=== PATIENT | female | born 1990 | race Caucasian/White ===

== ENCOUNTER 2023-03-26 14:39 | Outpatient (CLI) | payer OTHER, SELFPAY ==
--- NOTE | ~2023-03-26 | US_ITS ---
EXAMINATION: US OB transvaginal DATE: 03/26/2023 15:12 INDICATION: First trimester dating TECHNIQUE: Real-time pelvic transabdominal and transvaginal ultrasound was performed. COMPARISON: None. FINDINGS: The uterus measures 9.4 x 4.8 x 6.1 cm. There is an intrauterine gestational sac. A yolk sa c is identified. heart motion is identified measuring 137 beats per minute (bpm) by M-mode Dopp ler. The crown rump length measures 10 mm, which correlates with an estimated gestational age o f 7 weeks and 0 day(s) (+/-) 4 day(s). The right ovary measures 2.5 x 1.6 x 2.4 cm. The left ovary measures 3.3 x 2.9 x 3.8 cm. There is nor mal vascular flow in the ovaries. There is no free fluid in the pelvis. IMPRESSION: 1. Live intrauterine with an estimated gestational age of 7 weeks and 0 day(s) (+/-) 4 day( s) and an estimated delivery date of 11/12/2023. Reviewed, dictated and finalized at location F. IMPRESSION: 1. Live intrauterine with an estimated gestational age of 7 weeks and 0 day(s) (+/-) 4 day(s) and an estimated delivery date of 11/12/2023.
== END 2023-03-26 14:40 ==
PROVIDERS: PCP Obstetrics & Gynecology Gynecology; Visit Provider Obstetrics & Gynecology Gynecology
DX: O09.811 Supervision of pregnancy resulting from assisted reproductive technology, first trimester (principal); Z3A.01 Less than 8 weeks gestation of pregnancy; Z79.811 Long term (current) use of aromatase inhibitors
CPT/HCPCS: 76817

== ENCOUNTER 2023-06-08 11:12 | Outpatient (CLI) | payer OTHER, SELFPAY ==
--- NOTE | ~2023-06-08 | US_ITS ---
EXAMINATION: US OB /maternal detail DATE: 06/08/2023 12:17 INDICATION: survey TECHNIQUE: Multiple obstetric sonographic images performed. FINDINGS: No prior studies for comparison. There is a single living fetus in variable presentation. The placenta is anterior without placenta p revia. Cervical length is 3.6 cm. Placental margin to the cervix is 4.8 cm. Amniotic fluid volume is injected with normal. cardiac activity and movement is noted with a heart rate of 163 beats per minute. The following anatomy was identified as normal: 4 chamber heart 3 vessel cord cord insertion kidneys urinary bladder stomach spine diaphragm ventricles cisterna magna cerebellum The following biometric data were obtained: BPD: 42mm corresponds to gestational age 18 weeks 5 days. Head circumference: 159 mm corresponds to gestational age 18 weeks 5 days. Abdominal circumference: 128 mm corresponds to gestational age 18 weeks 2 days. Femur length: 26 mm corresponds to gestational age 17 weeks 6 days. Head circumference to abdominal circumference ratio: 1.25 (normal range for expected gestational age is 1.08-1.27). Estimated weight: 229 grams +/- 34 grams using Hadlock method, 83.5%. IMPRESSION: 1: Single living intrauterine with an estimated gestational age of 18weeks 3days by current ultrasound measurements, with an EDC of 11/06/2023 in variable presentation. 2. Normal survey. Reviewed, dictated and finalized at location A. [employer] IMPRESSION: 1: Single living intrauterine with an estimated gestational age of 18 weeks 3days by current ultrasound measurements, with an EDC of 11/06/2023 in carmita iable presentation. 2. Normal survey.
== END 2023-06-08 11:13 ==
LOC: MICIMG 11:13
PROVIDERS: PCP Advanced Practice Midwife; Visit Provider Advanced Practice Midwife
DX: Z36.9 Encounter for antenatal screening, unspecified (principal); Z3A.18 18 weeks gestation of pregnancy
CPT/HCPCS: 76805

== ENCOUNTER 2023-09-14 09:48 | Outpatient (CLI) | payer BC, SELFPAY ==
--- NOTE | ~2023-09-14 | US_ITS ---
US OB follow up DATE: 09/14/2023 10:19 INDICATION: Size greater than dates TECHNIQUE: Real-time imaging and Doppler analysis COMPARISON: 06/08/2020 obstetrical ultrasound FINDINGS: Live jackson intrauterine gestation, fetus in longitudinal lie, vertex presentation. Feta l heart rate of 139 bpm. Anterior placenta. Amniotic fluid index measures 23.2 cm per 5th percentile is 8.8 cm; 95th percentile is 23.8 cm. BPD 8.38 cm; 33 weeks 5 days Head circumference 30.93 cm; 34 weeks 4 days Abdominal circumference 29.11 cm; 33 weeks 1 day Femur length 6.24 cm; 32 weeks 2 days Composite age by Hadlock formula is 33 weeks 3 days plus or minus 2 weeks 2 days. MICHAEL 10/30/2023 Estimated weight is 2115 g plus or minus 317.31 grams EFW-GP 85.4% FL/BPD 74.49 (normal range 71.0-87.9) HC/AC 1.06 (normal range 0.95-1.11) FL/AC 21.45 (normal range 20.00-24.00) FL/HC 20.19 (normal range 19.69-21.63) IMPRESSION: Amniotic fluid index measures 23.2 cm, at upper limits of normal (95th percentile) Reviewed, dictated and finalized at Location A. Reviewed, dictated and finalized at location A. IMPRESSION: Amniotic fluid index measures 23.2 cm, at upper limits of normal (9 5th percentile)
== END 2023-09-14 09:49 ==
PROVIDERS: PCP Advanced Practice Midwife; Visit Provider Advanced Practice Midwife
DX: O36.63X0 Maternal care for excessive fetal growth, third trimester, not applicable or unspecified (principal)
CPT/HCPCS: 76816

== ENCOUNTER 2023-10-12 09:13 | Outpatient (CLI) | payer BC, SELFPAY ==
--- NOTE | ~2023-10-12 | US_ITS ---
EXAMINATION: US OB follow up DATE: 10/12/2023 09:49 INDICATION: Size greater than dates. TECHNIQUE: Real-time ultrasound of the pelvis was performed. COMPARISON: Ultrasound 09/14/2023, 03/26/2023. FINDINGS: There is a single living fetus in vertex presentation. The placenta is anterior. heart rate is 129 beats per minute (bpm). The amniotic fluid index is 14.7 cm, which is normal. The following biometric data were obtained: Biparietal diameter (BPD): 9.4 cm; head circumference (HC): 33.4 cm; abdominal circumference (AC): 34 .5 cm; femur length (FL): 7.3 cm. These measurements are concordant. Estimated weight is 3385 g +/- 508 g, which correlates with the >97th percentile when 11/12/23 i s used as estimated date of delivery. As single measurements, these parameters are each equal to the following estimated gestational ages: BPD: 38 weeks 1 days. HC: 38 weeks 1 days. AC: 38 weeks 3 days. FL: 37 weeks 2 days. estimated gestational age based solely on measurements from this exam is 38 weeks 0 days +/- 2 weeks 5 days. IMPRESSION: 1. Single living fetus in vertex presentation. 2. Large for gestational age. Estimated weight is 3385 g +/- 508 g, which correlates with the >97th percentile when 11/12/23 is used as estimated date of delivery. This date was set by ultrasound on 03/26/2023. Reviewed, dictated and finalized at location E. IMPRESSION: 1. Single living fetus in vertex presentation. 2. Large for gestational age. Estimated weight is 3385 g +/- 508 g, whic h correlates with the >97th percentile when 11/12/23 is used as estimated date o f delivery. This date was set by ultrasound on 03/26/2023.
== END 2023-10-12 09:14 ==
PROVIDERS: PCP Advanced Practice Midwife; Visit Provider Nurse Practitioner
DX: O36.63X0 Maternal care for excessive fetal growth, third trimester, not applicable or unspecified (principal); Z3A.00 Weeks of gestation of pregnancy not specified
CPT/HCPCS: 76816

== ENCOUNTER 2023-10-18 09:57 | Outpatient (CLI) | payer BC, SELFPAY ==
[2023-10-18] VITALS (9 sets, daily range): BP systolic 118–129; BP diastolic 68–78; PULSE 72–79; BMI 37.3
[2023-10-18 10:48] LABS: Basophils Percent Auto 0.3 % (0.2-1.2); Eosinophils Percent Auto 0.3 % (0-4.4); Hematocrit 36.2 % (37.0-47.0); Hemoglobin 11.6 g/dL (12.0-15.0); Immature Granulocyte Absolute 0.25 K/mm3 (0.00-0.031); Immature Granulocyte Percent A 2.3 % (0-0.5); Lymphocytes Absolute Auto 1.26 K/mm3 (0.9-3.2); Lymphocytes Percent Auto 11.7 % (18.3-44.2); Mean Corpuscular Hemoglobin 29.3 pg (26-34); Mean Corpuscular Volume 91.4 fl (80-100); Mean Platelet Volume 10.9 fl (7.4-10.4); Monocytes Absolute Auto 0.5 K/mm3 (0.1-0.6); Monocytes Percent Auto 4.9 % (2.6-8.5); Neutrophils Absolute Auto 8.7 K/mm3 (1.3-6.7); Neutrophils Percent Auto 80.5 % (45.5-73.1); Platelet Count Result 230 k/mm3 (150-375); Red Blood Count 3.96 M/mm3 (4.2-5.4); Red Cell Distribution Width 14.2 % (11.5-14.5); White Blood Count 10.8 K/mm3 (4.5-10.0)
[2023-10-18 10:58] LABS: Alanine Aminotransferase 15 U/L (6-35); Albumin Level 3.5 g/dL (3.5-5.1); Alkaline Phosphatase 156 U/L (38-126); Anion Gap 4 mmol/L (4-12); Aspartate Amino Transferase 20 U/L (14-36); Bilirubin,Total 0.4 mg/dL (0.2-1.3); Blood Urea Nitrogen 5 mg/dL (7-17); Calcium 8.8 mg/dL (8.4-10.2); Carbon Dioxide 22 mmol/L (22-30); Chloride 108 mmol/L (98-107); Estimated Glomerular Filt Rate > 60; Glucose 79 mg/dL (65-110); Potassium 3.8 mmol/L (3.4-5.0); Sodium 134 mmol/L (137-145); Uric Acid 4.3 mg/dL (2.5-7.5)
[2023-10-18 11:19] LABS: Appearance Urine Clear (Clear); Bilirubin Urine Negative (Negative); Blood Urine Negative (Negative); Color Urine Yellow (Yellow); Glucose Urine UA Negative (Negative); Ketones Urine 1+ mg/dL (Negative); Leukocyte Esterase Ur Negative LEU/UL (Negative); Nitrate Urine Negative (Negative); Protein Urine Negative (Negative); Specific Grav Ur 1.006 (1.001-1.035); Urobilinogen Urine 0.2 mg/dL (<2.0); pH Urine 7.5 (5.0-9.0)
[2023-10-18 11:25] LABS: Add Urine Microscopic? YES; Creatinine Urine 39.6 mg/dL; Total Protein Urine Random 16 mg/dL
--- NOTE | 2023-10-18 11:48 | PC.NURSE ---
Dr. Verdin returned page and informed of reactive NST, BP's, and lab results. OK to discharge to home. Pt to do 24 hr urine at home since PCR was elevated.
== END 2023-10-18 12:00 | disposition home or self-care (01) ==
LOC: ANHOBOP 10:00 → ANHOBPP 10:02
PROVIDERS: PCP Advanced Practice Midwife; Visit Provider Obstetrics & Gynecology Gynecology
DX: O13.9 Gestational [pregnancy-induced] hypertension without significant proteinuria, unspecified trimester (principal); Z3A.00 Weeks of gestation of pregnancy not specified
CPT/HCPCS: 36415; 59025; 80053; 81001; 82570; 84156; 84550; 85025; 99199

== ENCOUNTER 2023-10-19 12:58 | Outpatient (CLI) | payer BC, SELFPAY ==
[2023-10-19 13:06] VITALS: BMI 37.3
[2023-10-19 13:48] LABS: Total Volume 24 Hour Urine 2150 ml
[2023-10-19 13:48] LABS: Collection Time Urine 24 HOURS
[2023-10-19 13:49] LABS: Total Volume 24 Hour Urine 2150 ml
[2023-10-19 13:55] LABS: Creatinine Clearance Urine 189.1 ml/min (75-125); Creatinine Urine 81.3 mg/dL; Patient Weight 245 Lbs
[2023-10-19 13:55] LABS: Total Protein Urine 24 Hr 430 mg/24hr (28-141); Total Protein Urine Random 20 mg/dL
== END 2023-10-19 12:59 | disposition home or self-care (01) ==
LOC: ANHOBOP 13:01
PROVIDERS: PCP Advanced Practice Midwife; Visit Provider Obstetrics & Gynecology Gynecology
DX: Z34.90 Encounter for supervision of normal pregnancy, unspecified, unspecified trimester (principal); Z3A.00 Weeks of gestation of pregnancy not specified
CPT/HCPCS: 81050; 82575; 84156

== ENCOUNTER 2023-10-21 19:49 | Inpatient (IN) | payer BC, SELFPAY ==
[2023-10-21 20:06] VITALS: BMI 36.8
--- NOTE | 2023-10-21 20:06 | LDADM ---
This patient, Papi Jeong, was admitted to Labor/Delivery/Recovery 104 on 10/21/23 at 19:49. Plans for labor, pain management and were discussed with patient. Patient/family oriented to hospital policies and general routines including ID bracelet, bed and alarms, visiting hours, pain management, procedures, bathroom and other care routines, personal items, smoking policy, room service/diet and guest tray routines, security routines, and visiting hours. Patient/Family are encouraged to report perceived risks to care and to ask questions if they do not understand what they are told or what they should do. See OBIX for further documentation.
[2023-10-21 20:46] VITALS: BP 119/76; PULSE 80
[2023-10-21 20:47] LABS: Glucose Point of Care 109 mg/dl (65-105)
[2023-10-21 20:53] LABS: Basophils Percent Auto 0.2 % (0.2-1.2); Eosinophils Percent Auto 0.2 % (0-4.4); Hemoglobin 10.8 g/dL (12.0-15.0); Immature Granulocyte Absolute 0.13 K/mm3 (0.00-0.031); Immature Granulocyte Percent A 0.9 % (0-0.5); Lymphocytes Absolute Auto 1.74 K/mm3 (0.9-3.2); Lymphocytes Percent Auto 12.1 % (18.3-44.2); Mean Corpuscular HGB Conc 32.7 g/dl (32-36); Mean Corpuscular Hemoglobin 29.3 pg (26-34); Mean Corpuscular Volume 89.7 fl (80-100); Mean Platelet Volume 10.9 fl (7.4-10.4); Monocytes Absolute Auto 0.7 K/mm3 (0.1-0.6); Monocytes Percent Auto 4.8 % (2.6-8.5); Neutrophils Absolute Auto 11.8 K/mm3 (1.3-6.7); Neutrophils Percent Auto 81.8 % (45.5-73.1); Platelet Count Result 230 k/mm3 (150-375); Red Blood Count 3.68 M/mm3 (4.2-5.4); Red Cell Distribution Width 14.5 % (11.5-14.5); White Blood Count 14.4 K/mm3 (4.5-10.0)
[2023-10-21 21:00] VITALS: BP 129/82; PULSE 80; TEMP 36.4
[2023-10-21 21:04] LABS: Alanine Aminotransferase 17 U/L (6-35); Albumin Level 3.5 g/dL (3.5-5.1); Alkaline Phosphatase 150 U/L (38-126); Anion Gap 5 mmol/L (4-12); Aspartate Amino Transferase 27 U/L (14-36); Bilirubin,Total 0.4 mg/dL (0.2-1.3); Blood Urea Nitrogen 7 mg/dL (7-17); Calcium 8.9 mg/dL (8.4-10.2); Carbon Dioxide 19 mmol/L (22-30); Chloride 109 mmol/L (98-107); Estimated CRCL calculation 177 ml/min; Estimated Glomerular Filt Rate > 60; Glucose 108 mg/dL (65-110); Potassium 3.5 mmol/L (3.4-5.0); Sodium 133 mmol/L (137-145)
[2023-10-21 21:05] LABS: Uric Acid 4.3 mg/dL (2.5-7.5)
[2023-10-21] MEDS: miSOPROStol 25 MCG TABLET VAGINAL (21:05)
[2023-10-21 21:31] VITALS: BP 129/70; PULSE 79
[2023-10-21 22:31] VITALS: BP 115/56; PULSE 74
[2023-10-21 23:01] VITALS: BP 111/44; PULSE 73
[2023-10-21 23:30] VITALS: BP 118/59; PULSE 72
[2023-10-22] VITALS (185 sets, daily range): BP systolic 90–159; BP diastolic 35–107; PULSE 66–161; TEMP 36.1–36.6; O2SAT 92–100
[2023-10-22] MEDS: miSOPROStol 25 MCG TABLET 50 MCG VAGINAL ×2 (01:09→05:27)
--- NOTE | 2023-10-22 07:41 | WPDOBADMIT ---
Obstetrics - Admit Note Admission Note: record reviewed. No pertinent additions to the history and/or any subsequent changes in the physical findings that are not consistent with the expected course of the were found. Additions to the history and/or subsequent changes in the physical findings follow. Preeclampsia
--- NOTE | 2023-10-22 07:41 | PM.OBPNLAB ---
Pain Control Date/time seen: 10/22/23 07:30 Pain control: tolerating well Comments: Feeling very occasional cramping. Denies HOUSE, visual changes, RUQ pain, edema. Pelvic Exam Dilation (cm): 1 (1.5) Effacement (%): 60 station: -1 Amniotic membrane status: Intact Comments: head very well applied to cervix. Contractions Monitor mode: External Contraction frequency: 3 (2-4) Contraction duration: 60 (60-80) Contraction pattern: Regular Contraction phase: Contraction Contraction intensity: Moderate Status status: Category l Assessment and Plan Assessment: induction ongoing Comments: CNM to bedside. Reflexes 2+. Discussed plan of care an option for amniotomy. Discussed risks, benefits, and expectations of breaking water. Patient is agreeable. Amniotomy performed and there was a small return of clear amniotic fluid. Patient tolerated procedure well. Plan to begin pitocin if no cervical change by 0930.
[2023-10-22] MEDS: OXYTOCIN 30 UNITS/NS 500 ML 30 UNITS/500 ML BAG IV CONT (09:34)
[2023-10-22] MEDS: LACTATED RINGERS 1,000 ML 125 ML IV CONT ×3 (09:35→18:58)
--- NOTE | 2023-10-22 14:28 | WPDANESEPP ---
Anes - Eval Pre Procedure Procedure: Labor epidural Date/Time: 10/22/23 14:28 Surgeon: Lambert Preop Diagnosis: Pain during labor Pre Op Diagnosis: IOL Patient Data Age: 32 Gender: F Height: 1.73 m Weight: 110 kg Last Vital Signs Temp 36.1 C L 10/22/23 12:00 Pulse 77 10/22/23 14:01 BP 159/90 H 10/22/23 14:01 Pulse Ox 94 10/22/23 14:27 O2 Del Method Room Air 10/21/23 20:06 Allergies Allergy/AdvReac Type Severity Reaction Status Date / Time No Known Allergies Allergy Verified 10/14/23 14:34 Home Medications Medication Instructions Recorded Confirmed Type aspirin 81 mg capsule 81 mg PO DAILY 10/14/23 10/18/23 History cholecalciferol (vitamin D3) 125 125 mcg PO BID 10/14/23 10/18/23 History mcg (5,000 unit) tablet (Vitamin D3) ferrous sulfate 325 mg (65 mg 325 mg PO DAILY 10/14/23 10/18/23 History iron) tablet levothyroxine 88 mcg tablet 88 mcg PO DAILY 10/14/23 10/18/23 History metformin 500 mg tablet 1,000 mg PO HS 10/14/23 10/18/23 History omeprazole 20 mg tablet,delayed 20 mg PO DAILY 10/14/23 10/18/23 History release vits no.126-ferrous fum 1 tablet PO DAILY 10/14/23 10/18/23 History 28 mg iron-folic acid 800 mcg tablet (Classic ) doxylamine succinate 25 mg tablet 12.5 mg PO HS PRN Nausea 10/18/23 10/18/23 History (Unisom (doxylamine)) Laboratory Tests 10/21/23 10/21/23 20:33 20:38 WBC 14.4 H K/mm3 (4.5-10.0) RBC 3.68 L M/mm3 (4.2-5.4) Hgb 10.8 L g/dL (12.0-15.0) Hct 33.0 L % (37.0-47.0) MCV 89.7 fl (80-100) MCH 29.3 pg (26-34) MCHC 32.7 g/dl (32-36) RDW 14.5 % (11.5-14.5) Plt Count 230 k/mm3 (150-375) MPV 10.9 H fl (7.4-10.4) Immature Gran % (Auto) 0.9 H % (0-0.5) Neut % (Auto) 81.8 H % (45.5-73.1) Lymph % (Auto) 12.1 L % (18.3-44.2) [place] % (Auto) 4.8 % (2.6-8.5) Eos % (Auto) 0.2 % (0-4.4) Baso % (Auto) 0.2 % (0.2-1.2) Lymph # (Auto) 1.74 K/mm3 (0.9-3.2) [place] # (Auto) 0.7 H K/mm3 (0.1-0.6) Eos # (Auto) 0.0 K/mm3 (0-0.3) Baso # (Auto) 0.0 K/mm3 (0.0-0.1) Abs Immat Gran (auto) 0.13 H K/mm3 (0.00-0.031) Absolute Neuts (auto) 11.8 H K/mm3 (1.3-6.7) Absolute Nucleated RBC 0.000 K/mm3 (0.0-0.012) Nucleated RBC % 0.0 % (0.0-0.2) Sodium 133 L mmol/L (137-145) Potassium 3.5 mmol/L (3.4-5.0) Chloride 109 H mmol/L (98-107) Carbon Dioxide 19 L mmol/L (22-30) Anion Gap 5 mmol/L (4-12) BUN 7 mg/dL (7-17) Creatinine 0.50 L mg/dL (0.7-1.0) Estim Creat Clear Calc 177 ml/min Estimated GFR > 60 (59 - ) Glucose 108 mg/dL (65-110) POC Capillary Glucose 109 H mg/dl (65-105) Uric Acid 4.3 mg/dL (2.5-7.5) Calcium 8.9 mg/dL (8.4-10.2) Total Bilirubin 0.4 mg/dL (0.2-1.3) AST 27 U/L (14-36) ALT 17 U/L (6-35) Alkaline Phosphatase 150 H U/L (38-126) Total Protein 7.0 g/dL (6.3-8.2) Albumin 3.5 g/dL (3.5-5.1) RPR Pending Blood Type O Positive Antibody Screen Negative Patient hx anesthesia problems: none Family hx anesthesia problems: none Results Review: All pre-operative results and documents have been reviewed as part of the pre-operative evaluation. [facility] Family History Family History Mother Cerebrovascular accident Grandparent Congestive heart failure Social History Social History Smoking status: Never smoker Substance use: never Do You Feel Safe in your Home?: Yes Lack of Transportation: No Lack of Food: Never True Current Housing: I Have Housing Concerned About Future Housing: No Difficulty Paying Gas
[2023-10-22] MEDS: ONDANSETRON INJ 4 MG/2 ML VIAL IV PUSH (21:52)
[2023-10-23] VITALS (64 sets, daily range): BP systolic 108–164; BP diastolic 57–85; PULSE 67–123; RESP 16–18; TEMP 36.4–37; O2SAT 84–100
[2023-10-23] MEDS: OXYTOCIN 30 UNITS/NS 500 ML 30 UNITS/500 ML BAG 999 UNITS IV CONT (02:00)
--- NOTE | 2023-10-23 02:10 | PM.OBPRVD ---
OB - Vaginal Delivery Note Procedure Delivery date: 10/23/23 Events: Preeclampsia w/o severe features Induction method: AROM, Per Misoprostol Protocol and Per Pitocin Protocol Delivery monitor: External FHT and Internal Uterine Route of delivery: Laceration Description: Perineal - 2nd Degree Delivery repair: vicryl (3-0) Specimen: Yes (placenta) Quantitative Blood Loss (ml): 300 Anesthesia type: Epidural Disposition: Floor Complications: No immediate complications Baby Date of : 10/23/23 Weeks of gestation at delivery: 37 (37 4/7) gender: Female presentation: vertex position: Right Occiput Anterior Placenta delivery description: Spontaneous Cord Vessel Description: 3 Vessels and Delayed Cord Clamping score one minute: 8 score five minutes: 9
--- NOTE | 2023-10-23 02:12 | PM.OBDSVD ---
DS: Admitting Diagnosis Discharge Date 10/25/23 Admitting Diagnosis IUP 37 2/7 wks for MIL secondary to Preeclampsia DS: Discharge Diagnosis Discharge Diagnosis (1) Preeclampsia: Code(s): O14.90 - Unspecified pre-eclampsia, unspecified trimester Status: Acute (2) (normal spontaneous vaginal delivery): Code(s): O80 - Encounter for full-term uncomplicated delivery Status: Acute OB - DS: Summary OB Procedures : PIH Mgmt and Ultrasound OB Procedures Intrapartum: Spontaneous Vag Delivery OB Procedures: : None Peripartum Data Infant Delivery Method: Natural Vaginal Laceration Description: Perineal - 2nd Degree complications: none Status at Discharge Functional status at discharge: independent ambulation Overall status at discharge: patient is progressing back to baseline Time Spent with Patient Time attestation: Total time spent providing and/or coordinating discharge services: Discharge Plan Discharge Attending physician on discharge: Cassandra Verdin Discharging Clinician: Cassandra Verdin Anticipated Discharge Date/Time: 10/25/23 02:13 Patient Disposition: Home, Self-Care Activity: may shower and pelvic rest Diet: regular Patient Instructions: Antibiotic Form Stand Alone Forms: General Discharge Information Follow-up/Referrals: Cassandra Verdin MD [Physician] - 1 Week (and 6 wks) Discharge Medications: Continued metformin 500 mg Tablet 1,000 mg PO HS levothyroxine 88 mcg Tablet 88 mcg PO DAILY cholecalciferol (vitamin D3) [Vitamin D3] 125 mcg (5,000 unit) Tablet 125 mcg PO BID Rx Instructions: Takes 5000 units one day and 10,000 units the next Classic 28 mg iron- 800 mcg Tablet 1 tablet PO DAILY Discontinued ferrous sulfate 325 mg (65 mg iron) Tablet 325 mg PO DAILY omeprazole 20 mg Tablet,Delayed Release (Dr/Ec) 20 mg PO DAILY aspirin 81 mg Capsule 81 mg PO DAILY Unisom (doxylamine) 25 mg Tablet 12.5 mg PO HS PRN (Reason: Nausea) Date of admission: 10/21/23 19:49 Primary Care Provider: Lisa Stout Admitting Provider: Cassandra Verdin Attending physician on admission: Cassandra Verdin Condition: Stable
[2023-10-23] MEDS: OXYTOCIN 30 UNITS/NS 500 ML 30 UNITS/500 ML BAG 125 UNITS IV CONT (02:22)
[2023-10-23] MEDS: BENZOCAINE 20% AER SPR (*SP) 56 GM CAN 1 SPRAY TOPICAL (02:26)
[2023-10-23] MEDS: WITCH HAZEL 40 PADS 1 PAD TOPICAL (02:26)
--- NOTE | 2023-10-23 04:42 | OBPPTRN ---
Patient transferred to post room #277 via w/c. Support person present. Oriented to unit, room, information board, rooming in, admission packet and security measures. Patient verbalizes understanding.
[2023-10-23] MEDS: IBUPROFEN 600 MG TABLET PO ×3 (05:20→21:50)
--- NOTE | 2023-10-23 07:50 | PM.OBPNLAB ---
Pain Control Date/time seen: 10/22/231904 Late entry. CNM called for update and spoke with RN. Pt s/p epidural and 4cm. FHT tracing reassuring. Care of pt to Dr. Verdin at this time.
[2023-10-23] MEDS: MULTIVIT/MIN/PREN/FOL AC/IRON TABLET 1 TAB PO (07:56)
[2023-10-23] MEDS: LEVOTHYROXINE SODIUM 88 MCG TABLET PO (07:56)
[2023-10-23] MEDS: DOCUSATE SODIUM 100 MG CAPSULE PO ×2 (07:56→17:19)
[2023-10-23] MEDS: POLYSACCHARIDE IRON COMPLEX 150 MG CAPSULE PO ×2 (07:56→17:19)
[2023-10-23] MEDS: CHOLECALCIFEROL 1,000 UNITS TABLET 5000 UNITS PO ×2 (07:57→17:19)
[2023-10-23 12:30] LABS: Rapid Plasma Reagin Non-Reactive (NonReactive)
--- NOTE | 2023-10-23 17:09 | PC.NURSE ---
Addendum entered by Desire Waters RN 10/23/23 17:26: Infant is spitty and gaggy. The formula feeding at 1250 was spit up. Original Note: [id number] Introductions were made, then consulted with patient to assess needs related to . Discussed with mother her?plans to feed?her , the?experience so far, late behaviors, using [id number] and stimulating with undressing, checking the diaper to encourage . Mother shared that is in the nursery to have a hearing test done. Resources provided for inpatient and outpatient services with the feeding sheet, mom/baby guide and name written on the communication board. Mother voiced understanding of information and parents encouraged to call for assistance when infant returns to them. [phone] Mother requested KELLY HAMILTON to consult with her. Infant has been [id number]-[id number] and showing feeding cues rarely. Primary RN is at the bedside feeding the formula and prepared to give gel for a low blood sugar. Breast pump provided due to ineffective and introduction to the nipple shield last night. Instructions given on cleaning, care, usage, that there should be no pain, pumping schedule for milk production, collection, and storage of human milk. Patient was assessed for correct placement, flange size (24mm used, mother denied pain, however; there was blanching after the pumping session, Mother was encouraged to pump for comfort, nipple stretching/stimulation for adequate milk production every 3 hours (8 times in 24 hours) 1-2 times at night with the 27mm flange next time to assess for comfort. Parents are encouraged to record the pumping schedule on the feeding sheet.?Mother voiced understanding of the education shared along with mom/baby guide and the pump measurement, flange fit handout for additional resource information. [id number] KELLY HAMILTON responded to a request for assistance with this feeding. Mother led the conversation with her?plans to feed?her infant and the?experience so far. Encouraged understanding of the benefits of skin to skin (demonstrating unwrapping infant and placing upright on her chest), stimulating with massage touch, changing positions to encourage wakefulness, how to watch for early feeding cues, responsive feeding, feeding on demand (aiming for 8-12 times in 24 hours, about every 2-3 hours), milk production, building/maintaining a milk supply, duration of feeding, signs of adequate intake/output and how to record on the feeding sheet. Mother works well with her infant with encouragement and education. The late rarely demonstrated feeding cues and ways to encourage with hand expressed colostrum. We respond to the feeding cues we visualize and attempt to latch with and without the nipple shield. Infant will latch with the nipple shield, then when it is removed rarely will latch optimally. EBM is visible on the inside of the nipple shield. Majority of the latches are shallow with sucking on the top portion of the nipple only. Reviewed positioning and ear, shoulder, hip alignment, supporting the breast to facilitate a deep latch, asymmetrical latch (off-center), leading with the chin with a big, open, wide gape and body close to mother. Infant was unable to maintain latch without pain to mother protecting the nipple with optimal positioning and latching without the nipple shield. Reviewed comfort measures of healing with a warm, wet washcloth to rinse breast, then leave open to air-dry, good handwashing when or touching the breast/nipples to prevent infection. Encouraged practicing an optimal latch with the nipple shield, then pumping to protect her milk supply and continue to remove the shield at times to see in will latch independently to the breast. Reviewed the nine stages, instincts and giving infant [id number] time to practice those skills was born with keeping covered for warmth. Mother voiced
[2023-10-23] MEDS: metFORMIN HCL 500 MG TABLET 1000 MG PO (21:50)
[2023-10-24 03:43] VITALS: BP 121/68; PULSE 70
[2023-10-24 04:44] LABS: Hematocrit 29.4 % (37.0-47.0); Hemoglobin 9.4 g/dL (12.0-15.0)
--- NOTE | 2023-10-24 07:30 | P.PNOB_ITS ---
OB - PN: Subj Subjective Date/time seen: 10/24/23 07:30 Interval history: No preeclampsia symptoms Patient comments: no complaints and pain well controlled (except back pain at epidural site) [place] baby status: doing well OB - PN: Obj Data Labs 10/24/23 03:33 10/21/23 20:33 Labs: Laboratory Results - last 24 hr 10/21/23 10/24/23 20:33 03:33 Hgb 9.4 L Hct 29.4 L RPR Non-reactive OB - PN A/P Assessment and Plan (1) Preeclampsia: Code(s): O14.90 - Unspecified pre-eclampsia, unspecified trimester Status: Acute Assessment and Plan: BP normal Good diuresis Plan day: 1 Plan: routine care Comments: plan heating pad for back Time Spent With Patient Time: Total time spent is greater than 50% in coordination of care (as documented) at patient's floor/unit and/or counseling patient: Exam : Bimanual exam- vagina & uterus: other (Uterus firm, nt @U)
[2023-10-24] MEDS: IBUPROFEN 600 MG TABLET PO ×3 (07:52→19:40)
[2023-10-24] MEDS: MULTIVIT/MIN/PREN/FOL AC/IRON TABLET 1 TAB PO (07:52)
[2023-10-24] MEDS: POLYSACCHARIDE IRON COMPLEX 150 MG CAPSULE PO ×2 (07:52→16:37)
[2023-10-24] MEDS: SIMETHICONE 80 MG TAB.CHEW PO (07:52)
[2023-10-24] MEDS: ACETAMINOPHEN 325 MG TABLET 650 MG PO (07:53)
[2023-10-24] MEDS: WITCH HAZEL 40 PADS 1 PAD TOPICAL (07:54)
[2023-10-24] MEDS: LEVOTHYROXINE SODIUM 88 MCG TABLET PO (07:54)
[2023-10-24 08:50] VITALS: BP 124/69; PULSE 82; RESP 16; TEMP 36.6; O2SAT 98
[2023-10-24 12:10] VITALS: BP 128/65; PULSE 79; RESP 16; TEMP 37.3; O2SAT 97
--- NOTE | 2023-10-24 16:27 | PC.NURSE ---
[id number] Purposefully rounded to assess for needs. Parents share they have stayed with the plan and infant did not latch last night. has recently been supplemented with bottle of formula. Questions were answered and discussed. is emtn-ct-[id number] with mother. Parents will eat breakfast and call with the next session when they see feeding cues. [id number] Patient requested a consult with RN JOY after placing infant [id number] upright on chest/breast and visualizing feeding cues. Infant was reluctant to latch at first, then we practiced with the nipple shield, then after resetting and burping infant settled at the right breast with mom using the football positioning with the nipple shield. After a few sucks the nipple shield was removed and latched to the breast. Education given to the mother of how to visualize the suckling (with good rocking jaw motion), swallows (dropping of the lower jaw) and how to listen for drinking at the breast (the ka sound). was able to maintain latch without pain to mother protecting the nipple with optimal positioning and latching. After an effective session of 10 minutes infant self detached. laid in the bassinet to rest so parents can eat lunch. wakes, feeding cues are visualized and infant brought to mother. Infant demonstrated looking for the breast, then we moved infant to football position. Infant opened with a big, wide gape and latched optimally to the left breast. Mother watched for swallowing with lowering of the jaw with a longer suck and the ka sound. Mother voiced understanding of skin to skin, stimulating with massage touch, responsive feedings, hand expressed colostrum, talking to to encourage if it has been 2 -2.5 hours since the start of the last , to call if does not latch, or if there is discomfort with . Inpatient resource provided with name written on the communication board. Parents voiced understanding of information, demonstrated learning and will call if there is a request for assistance. Reported to the Primary RN.
[2023-10-24] MEDS: CHOLECALCIFEROL 1,000 UNITS TABLET 5000 UNITS PO (16:36)
[2023-10-24 16:37] VITALS: BP 127/75; PULSE 74; RESP 14; TEMP 36.3; O2SAT 99
[2023-10-24] MEDS: DOCUSATE SODIUM 100 MG CAPSULE PO (16:37)
[2023-10-24] MEDS: metFORMIN HCL 500 MG TABLET 1000 MG PO (19:40)
[2023-10-24 20:00] VITALS: BP 122/64; PULSE 72; RESP 18; TEMP 36.7
[2023-10-24 23:00] VITALS: BP 127/68; PULSE 70
[2023-10-25] MEDS: IBUPROFEN 600 MG TABLET PO (04:05)
[2023-10-25 04:49] VITALS: BP 123/77; PULSE 72
[2023-10-25] MEDS: LEVOTHYROXINE SODIUM 88 MCG TABLET PO (06:40)
[2023-10-25 06:45] VITALS: BP 132/76; PULSE 72; RESP 18; TEMP 36.6; O2SAT 99
[2023-10-25] MEDS: MULTIVIT/MIN/PREN/FOL AC/IRON TABLET 1 TAB PO (08:16)
[2023-10-25] MEDS: CHOLECALCIFEROL 1,000 UNITS TABLET 5000 UNITS PO (08:16)
[2023-10-25] MEDS: DOCUSATE SODIUM 100 MG CAPSULE PO (08:16)
--- NOTE | 2023-10-25 08:20 | P.PNOB_ITS ---
OB - PN: Subj Subjective Date/time seen: 10/25/23 08:20 Interval history: No preeclampsia symptoms Patient comments: no complaints and pain well controlled [place] baby status: doing well and nursing well OB - PN: Obj Data Labs 10/24/23 03:33 10/21/23 20:33 OB - PN A/P Assessment and Plan (1) Preeclampsia: Code(s): O14.90 - Unspecified pre-eclampsia, unspecified trimester Status: Acute Assessment and Plan: Doing well Plan day: 2 Plan: routine care, discharge home and follow up 6 weeks (and 1 week) Time Spent With Patient Time: Total time spent is greater than 50% in coordination of care (as documented) at patient's floor/unit and/or counseling patient: Exam : Bimanual exam- vagina & uterus: other (Uterus firm, nt @U)
--- NOTE | 2023-10-25 13:21 | PC.NURSE ---
Addendum entered by Desire Waters RN 10/25/23 13:30: Reviewed with parents if doesn't latch, then pump and supplement with either EBM or formula feeding on demand until infant is content and not demonstrating feeding cues. Reminded parents of the list of what to watch for and when to call the MD. Mother voiced understanding of the education. Original Note: [id number] Consulted with mother concerning needs and she shared her ability to independently latch optimally without pain most of the time. Mother is feeding appropriately for growth of infant and understands stimulating infant to eat if needed. has had appropriate feedings in the last 24 hours meets the outcomes for weight, output, blood sugar and jaundice at this time. Mother is in the process of being discharged to home. Infant is demonstrating feeding cues and mother shared it has not been 3 hours. Encouraged mother to respond to feeding cues rather than a scheduled time. Offered services before she goes home to assess the latch and watch for swallowing. Mother latched to the left breast using cross cradle and mother and has a difficult time holding the breast sitting in a chair. Recommended the football position for the left side. Mother effectively latched infant to the left breast using a sandwich hold without lifting her breast working with the natural fall of the large breast. Infant demonstrated swallowing which was visualized and heard. Reinforced understanding of milk production, transition of milk, signs of adequate intake, transition of stool, prevention/relief of engorgement, plugged ducts, mastitis, responsive watching for feeding cues, the different methods of stimulating to breastfeed 1-3 hours after the start of the last feeding, community resources, and when to call a provider using the resource of the feeding sheet along with the mom and baby guide. Outpatient services reviewed and Mother voiced understanding of the information shared, is confident to continue effectively her at home, when to call for assistance, denies any additional assistance or education at this time.
[2023-10-28 09:17] VITALS: BP 140/84; PULSE 88; RESP 18; TEMP 36.7; O2SAT 100
== END 2023-10-25 10:13 | disposition home or self-care (01) | DRG 807 ==
LOC: ANHLDR 10-23 02:14 → ANHOB2 10-23 05:36
PROVIDERS: Admitting Provider Obstetrics & Gynecology Gynecology; PCP Advanced Practice Midwife; Visit Provider Obstetrics & Gynecology Gynecology
DX: O14.94 Unspecified pre-eclampsia, complicating childbirth (principal); Z37.0 Single live birth; Z3A.37 37 weeks gestation of pregnancy; O70.1 Second degree perineal laceration during delivery
CPT/HCPCS: 36415; 80053; 82948; 84550; 85014; 85018; 85025; 86592; 86850; 86900; 86901; 88307; A9270; J2405; J2590; J2795; J7120

== ENCOUNTER 2023-10-26 14:37 | Outpatient (CLI) | payer BC, SELFPAY ==
[2023-10-26 15:00] VITALS: BP 134/75; PULSE 69
--- NOTE | 2023-10-26 15:24 | WPDANLDPN2 ---
Anes-Prog Note L&D Date/Time: 10/26/23 15:24 Neuro status: Neuro function grossly intact. Vital Signs: Last Vital Signs Pulse 69 10/26/23 15:00 BP 134/75 10/26/23 15:00 Pain score (VAS): 5 Patient feedback: pt evaluated for PDPH. pt sitting up with lights on spoke with her about symptoms including headache that was mildly better upon laying flat, no light sensitivity, headaches on and off after several hours, and fleeting neck pain. spoke about possibility of PDPH with treatments including EBP and conservative treatments. pt opted for conservative treatment.
[2023-10-26 15:30] VITALS: BP 145/74; PULSE 63
--- NOTE | 2023-10-26 15:30 | PC.NURSE ---
1520--Cruz from anesthesia at bedside to discuss plan of care. Blood patch and conservative route options discussed. Pt chose to wait on the blood patch. Alternating Tylenol/Motrin every three hours discussed along with pushing fluids,caffeine and rest. Pt verbalized that she would like to try that first.
[2023-10-26 15:45] VITALS: BP 129/77; PULSE 69
[2023-10-26] MEDS: ACETAMINOPHEN 500 MG TABLET 1000 MG PO (15:48)
== END 2023-10-26 17:30 | disposition home or self-care (01) ==
LOC: ANHOBOP 14:41 → ANHOBPP 14:43
PROVIDERS: PCP Advanced Practice Midwife; Visit Provider Obstetrics & Gynecology Gynecology
DX: O89.4 Spinal and epidural anesthesia-induced headache during the puerperium (principal)
CPT/HCPCS: 99199; A9270

== ENCOUNTER 2023-10-28 11:12 | Outpatient (CLI) | payer BC, SELFPAY ==
[2023-10-28 11:40] VITALS: TEMP 36.7
[2023-10-28 11:47] VITALS: BP 137/86; PULSE 59
--- NOTE | 2023-10-28 12:08 | P.PCNANE_ITS ---
Anes - Epidural Blood Patch PN Date/Time: 10/28/23 12:08 Consent: I have discussed with the patient/family/POA, the rationale of a lumbar epidural autologous blood patch for the treatment of post-dural puncture headache (spinal headache), including associated potential risks, benefits, complications and side effects. I have also discussed more conservative treatment options such as intravenous hydration, caffeine and non-prescription analgesics. The patient/family/POA, understand(s) and wish(es) to proceed with epidural autologous blood patch as treatment for the patient's post-dural puncture headache. Time-Out: A pre-procedural Time-Out was completed immediately before starting the procedure and confirmed: Patient Identification, Site, Procedure, Patient Position and the Availability of Requisite Equipment. Clinical Indications: Pt presents for second follow up with postural HOUSE and photophobia. Pt tried conservative treatment with no resolution of symptoms. Epidural Insertion Note Patient position: sitting Skin prep: chlorhexidine Needle: 18 gauge Tuohy-Schliff Technique: loss of resistance (Obtained 16ml autologous blood from patients right hand with injection into epidural space at L2-3. All 16ml injected to ac hieve fullness in pt hips and resolution of pt symptoms. ) Skin anesthesia: lidocaine 1% Observations: tolerated well Complications: none
[2023-10-28 12:16] VITALS: BP 125/70; PULSE 56
[2023-10-28 12:30] VITALS: BP 134/69; PULSE 59
[2023-10-28 12:45] VITALS: BP 123/76; PULSE 58
[2023-10-28 13:00] VITALS: BP 130/74; PULSE 59
== END 2023-10-28 13:30 | disposition home or self-care (01) ==
LOC: ANHOBOP 11:20 → ANHOBPP 11:20
PROVIDERS: PCP Advanced Practice Midwife; Visit Provider Obstetrics & Gynecology Gynecology
DX: O74.5 Spinal and epidural anesthesia-induced headache during labor and delivery (principal)
CPT/HCPCS: 62273; 99199